=== PATIENT | female | born 1965 | race Caucasian/White ===

== ENCOUNTER 2020-04-01 06:02 | Day surgery (SDC) | payer OTHER, SELFPAY ==
[~2020-04-01] VITALS: Ht 157.5 cm; Wt 70.3 kg
[2020-04-01] MEDS ORDERED: LIDOCAINE 2% 100 MG/5 ML UJET TP ONE (07:32)
[2020-04-01] MEDS ORDERED: fentaNYL 0.05 MG/ML VIAL ONE (07:32)
[2020-04-01] MEDS ORDERED: fentaNYL 0.05 MG/ML VIAL IVP ONE (08:25)
== END 2020-04-01 08:40 | disposition home or self-care (01) ==
LOC: MDS 06:02 → MMU 06:03 → MDS 08:40
PROVIDERS: ATTEND Internal Medicine Gastroenterology
DX: R14.0 Abdominal distension (gaseous) (principal); K57.30 Diverticulosis of large intestine without perforation or abscess without bleeding; F41.9 Anxiety disorder, unspecified; E66.9 Obesity, unspecified; Z68.30 Body mass index [BMI] 30.0-30.9, adult; Z98.51 Tubal ligation status
CPT/HCPCS: 45378; 81025; J3010; U0003